=== PATIENT | male | born 1950 | race Two or more races ===

== ENCOUNTER 2017-02-28 21:54 | Emergency (ER) | payer MEDICARE ==
[2017-02-28 22:39] LABS: CALCIUM 8.1 mg/dL (8.5-10.1); CARBON DIOXIDE 25.5 mmol/L (21-32); CHLORIDE SERUM 105 mmol/L (98-107); CREATININE SERUM 1.1 mg/dL (0.7-1.3); GFR1 > 60 mL/min; GLUCOSE SERUM 93 mg/dL (74-106); POTASSIUM SERUM 3.3 mmol/L (3.5-5.1); SODIUM SERUM 140 mmol/L (136-145)
[2017-02-28 22:45] LABS: ALBUMIN 3.4 g/dL (3.4-5.0); ALKALINE PHOSPHATASE 55 U/L (46-116); ALT/SGPT 31 U/L (16-63); AST/SGOT 32 U/L (15-37); BILIRUBIN TOTAL 0.48 mg/dL (0.20-1.00); TOTAL PROTEIN, SERUM 6.6 g/dL (6.4-8.2)
[2017-02-28 23:19] LABS: RED CELL DISTRIBUTION WIDTH 12.8 % (11.5-14.5)
[2017-02-28 23:50] LABS: PLATELET COUNT 126 x10^3mcL (130-400)
[2017-03-01 01:54] LABS: BAND NEUTROPHIL 3 % (0-10); BASOPHIL 0 % (0-2); METAMYELOCTE 1 % (0-2); MONOCYTE 20 % (0-7); SEGMENTED NEUTROPHILS 38 % (37-75)
[2017-03-01 01:55] LABS: PLATELET MORPHOLOGY LARGE PLATELET SEEN; rbc morphology (normal/abnorm) NORMAL (NORMAL)
[2017-03-01 02:02] VITALS: BP 132/78
== END 2017-03-01 02:02 | disposition home or self-care (01) ==
LOC: ED 21:54
PROVIDERS: Emergency Medicine
DX: J20.9 Acute bronchitis, unspecified (principal)
CPT/HCPCS: 36415; 83880; 87804; J2405; Q0162